=== PATIENT | female | born 1980 | race Caucasian/White ===

== ENCOUNTER 2021-08-27 10:04 | Emergency (ER) | payer OTHER, SELFPAY ==
[2021-08-27 10:08] VITALS: BP 156/80; PULSE 109; RESP 16; TEMP 36.9; O2SAT 99
[2021-08-27 10:18] VITALS: BP 156/80; PULSE 109; RESP 16; TEMP 36.9; O2SAT 99
--- NOTE | 2021-08-27 10:38 | ED.URI ---
HPI - URI/Sore Throat General Chief Complaint: Upper Respiratory Infection Stated Complaint: headache congestion Time Seen by Provider: 08/27/21 10:20 Source: patient and RN notes reviewed History of Present Illness HPI Narrative: Patient is a 31-year-old female who presents the urgent care with complaints of congestion, sore throat, body aches and headache. Patient states her symptoms started Friday evening. Denies of any fevers. States she has been taking Midol and Tylenol. Also reports of some left ear pain without drainage. Patient has had a positive COVID exposure. States that her at home COVID test yesterday was negative. No other acute complaints. No acute distress noted. Patient aware of the plan of care. Some parts of this dictation were generated by voice recognition software and may contain typographical and/or grammatical inaccuracies. Related Data Home Medications Medication Instructions Recorded Confirmed No Home Medications 08/27/21 08/27/21 Allergies Allergy/AdvReac Type Severity Reaction Status Date / Time Penicillins Allergy Unknown Unknown Unverified 08/27/21 10:17 Review of Systems Review of Systems: CONSTITUTIONAL: Denies fever, chills, or sweats. EYES: Denies visual changes, redness, or discharge. ENT: Reports of left otalgia, nasal congestion, rhinorrhea, sore throat CARDIOVASCULAR: Denies chest pain, palpitations, or edema. RESPIRATORY: Denies cough or dyspnea. GASTROINTESTINAL: Denies abdominal pain, nausea, vomiting, or diarrhea. GENITOURINARY: Denies dysuria or hematuria. SKIN: Denies rash or itching. MUSCULOSKELETAL: Denies back pain, joint pain, or myalgia. NEUROLOGIC: Reports of headache All other systems reviewed are negative, except as documented in HPI. PMFSH Comments At the time of my signature, I reviewed and agree with the nursing past medical, surgical, social, and family history. There is no relevant family history pertinent to the patient complaint. Exam Narrative: GENERAL: This is a well-nourished, well-developed patient, in no apparent distress. HEAD: normocephalic, atraumatic. EYES: PERRL. Sclera clear/white. Vision is grossly intact. EARS: External ears normal, auditory canals clear and without drainage, mild bilateral effusions without otitis. TMs normal without perforation. Hearing grossly intact. NOSE: External nose normal with no obvious nasal discharge, mild bilateral erythemic nares with yellow rhinorrhea. THROAT: Mucous membranes moist, posterior pharynx clear. Moderate postnasal drainage NECK: Neck supple, non-tender without lymphadenopathy, masses or thyromegaly. CARDIOVASCULAR: Regular rate and rhythm without murmurs, gallops, or rubs. RESPIRATORY: Clear to auscultation. Breath sounds equal bilaterally. No wheezes, rales, or rhonchi. SKIN: warm, intact with no suspicious lesions or rash, good texture and turgor. NEURO: awake, alert, and oriented to person, place and time. There were no obvious focal neurologic abnormalities. EXTREMITIES: No clubbing, cyanosis, or edema. Course Course Level of Care: Express Care Visit Vital Signs Vital signs: Vital Signs Temperature 98.4 F 08/27/21 10:08 Pulse Rate 109 H 08/27/21 10:08 Respiratory Rate 16 08/27/21 10:08 Blood Pressure 156/80 H 08/27/21 10:08 Pulse Oximetry 99 08/27/21 10:08 Temperature 98.4 F 08/27/21 10:18 Pulse Rate 109 H 08/27/21 10:18 Respiratory Rate 16 08/27/21 10:18 Blood Pressure 156/80 H 08/27/21 10:18 Pulse Oximetry 99 08/27/21 10:18 Reviewed-patient is informed that they may have pre-hypertension or hypertension based on a blood pressure reading in the department. I recommend the patient call the primary care provider listed on their discharge instructions or a physician of their choice this week to arrange follow-up for further evaluation of possible pre-hypertension or hypertension. MDM - URI/Sore Throat MDM Narrative Medical decision making narrative: Ivette
== END 2021-08-27 10:52 | disposition home or self-care (01) ==
PROVIDERS: Emergency Provider Nurse Practitioner Family; PCP Nurse Practitioner Family
DX: J06.9 Acute upper respiratory infection, unspecified (principal); Z20.822 Contact with and (suspected) exposure to COVID-19
CPT/HCPCS: 87426; 87804; 99203; C9803; G0463